=== PATIENT | female | born 1975 | race Caucasian/White ===

== ENCOUNTER 2016-10-05 05:39 | Emergency (ER) | payer SELFPAY ==
[~2016-10-05] VITALS: Ht 160 cm; Wt 109.8 kg
[2016-10-05] MEDS ORDERED: HYDROcodone/APAP 5/325 TABLET ONE (06:36)
[2016-10-05] MEDS ORDERED: HYDROcodone/APAP 5/325 TABLET PO ONE (07:00)
[2016-10-05] MEDS ORDERED: LISINOPRIL 10 MG TABLET PO ONE (07:30)
[2016-10-05] MEDS ORDERED: LISINOPRIL 20 MG TABLET ONE ×2 (07:34→07:43)
[2016-10-05 08:27] VITALS: BP 192/98
== END 2016-10-05 08:29 | disposition home or self-care (01) ==
LOC: ED 07:30
DX: K02.9 Dental caries, unspecified (principal); I10 Essential (primary) hypertension; F17.210 Nicotine dependence, cigarettes, uncomplicated
CPT/HCPCS: 99283

== ENCOUNTER 2016-10-24 06:50 | Emergency (ER) | payer SELFPAY ==
[~2016-10-24] VITALS: Ht 160 cm; Wt 108.9 kg
[2016-10-24 07:54] LABS: ASPARTATE AMINO TRANSFERASE 31 U/L (15-37); BLOOD UREA NITROGEN 11 mg/dL (7-18)
[2016-10-24] MEDS ORDERED: LISINOPRIL 20 MG TABLET ONE (08:09)
[2016-10-24] MEDS ORDERED: LISINOPRIL 10 MG TABLET PO ONE (08:30)
[2016-10-24 08:33] VITALS: BP 142/88
[2016-10-24 08:34] LABS: HCG UR OBC PASS
== END 2016-10-24 09:17 | disposition home or self-care (01) ==
LOC: ED 07:55
DX: L50.9 Urticaria, unspecified (principal); R31.29 Other microscopic hematuria; I10 Essential (primary) hypertension
CPT/HCPCS: 36415; 80053; 81001; 81025; 84439; 84443; 85025; 99284